=== PATIENT | female | born 1985 | race African-American/Black ===

== ENCOUNTER 2022-02-14 16:25 | Inpatient (IN) | payer OTHER ==
[2022-02-14] MEDS ORDERED: GI Cocktail Oral Solution 30 ML PO ONE (16:45)
[2022-02-14] MEDS ORDERED: Sodium Chloride 0.9% 10 ML Syringe FLUSH PRN (17:27)
[2022-02-14] MEDS ORDERED: Ketorolac 30 MG/ML SDV IVPUSH ONE (17:28)
[2022-02-14] MEDS ORDERED: Ondansetron 4 MG/2 ML SDV IVPUSH ONE (17:28)
[2022-02-14] MEDS ORDERED: Lactated Ringers 1,000 ML IV ONE ×2 (17:28→18:46)
[2022-02-14 18:14] LABS: CHLORIDE,CL 99 mmol/L (98-107); SODIUM,NA 137 mmol/L (136-145)
[2022-02-14 18:16] LABS: ANION GAP 12.3 mmol/L (5-15)
[2022-02-14] MEDS ORDERED: fentaNYL 100 MCG/2 ML SDV IVPUSH ONE (18:46)
[2022-02-14] MEDS ORDERED: cefTRIAXone 1 GM Vial IVPUSH ONE (18:48)
[2022-02-14] MEDS ORDERED: Iopamidol 612 MG/ML 100 ML Bottle IVPUSH ONE (19:02)
[2022-02-14] MEDS ORDERED: Ibuprofen 200 MG Tab PO PRN (20:54)
[2022-02-14] MEDS ORDERED: Promethazine 12.5 MG in Sodium Chloride 0.9% 100 ML IV PRN (20:54)
[2022-02-14 21:37] LABS: BARBITURATE SCREEN,URINE NEGATIVE (NEGATIVE); BENZODIAZEPINES SCREEN,URINE NEGATIVE (NEGATIVE); BUPRENORPHINE SCREEN,URINE NEGATIVE (NEGATIVE); METHAMPHETAMINE SCREEN, URINE NEGATIVE (NEGATIVE); THC SCREEN,URINE 50 NG/ML NEGATIVE (NEGATIVE)
[2022-02-14] MEDS: Sodium Chloride 0.9% 1,000 ML IV SCH (22:31)
[2022-02-14] MEDS: Ondansetron 4 MG/2 ML SDV IV SCH (22:43)
[2022-02-14] MEDS: Morphine 2 MG/ML SYRINGE IVPUSH PRN (22:44)
[2022-02-15] MEDS: Ketorolac 30 MG/ML SDV IVPUSH PRN ×3 (02:37→15:13)
[2022-02-15] MEDS: Ondansetron 4 MG/2 ML SDV IV SCH ×4 (02:42→20:38)
[2022-02-15] MEDS: Morphine 2 MG/ML SYRINGE IVPUSH PRN ×3 (06:03→20:42)
[2022-02-15] MEDS: Sodium Chloride 0.9% 1,000 ML IV SCH ×3 (06:10→19:05)
[2022-02-15 08:37] LABS: CHLORIDE,CL 105 mmol/L (98-107); SODIUM,NA 141 mmol/L (136-145)
[2022-02-15] MEDS ORDERED: Magnesium Sulfate/Water 4 GM in Premix Bag 1 BAG IV ONE (09:18)
[2022-02-15] MEDS: Potassium Chloride Riders 20 MEQ in Premix Bag 1 BAG IV SCH ×2 (12:37→17:58)
[2022-02-15] MEDS ORDERED: Potassium Chloride Riders 20 MEQ in Premix Bag 1 BAG IV SCH (17:45)
[2022-02-16] MEDS: Sodium Chloride 0.9% 1,000 ML IV SCH (01:48)
[2022-02-16] MEDS: Ondansetron 4 MG/2 ML SDV IV SCH ×2 (03:57→08:12)
[2022-02-16 07:19] LABS: ANION GAP 7.6 mmol/L (5-15); CHLORIDE,CL 108 mmol/L (98-107); SODIUM,NA 140 mmol/L (136-145)
[2022-02-16] MEDS: Ketorolac 30 MG/ML SDV IVPUSH PRN (08:14)
[2022-02-16] MEDS ORDERED: Ondansetron 4 MG/2 ML SDV IV PRN (08:20)
[2022-02-16] MEDS ORDERED: Acetaminophen/HYDROcodone 325-5 MG Tab PO PRN (08:21)
[2022-02-16] MEDS ORDERED: Ondansetron 4 MG Tab.DIS PO PRN (08:21)
[2022-02-16] MEDS ORDERED: Ketorolac 15 MG/ML SDV IVPUSH PRN (08:22)
[2022-02-16] MEDS ORDERED: Pantoprazole 40 MG Vial IVPUSH SCH (13:00)
[2022-02-16] MEDS ORDERED: Magnesium Oxide 400 MG Tab PO SCH (13:30)
== END 2022-02-16 17:32 | disposition home or self-care (01) | DRG 439 ==
LOC: VM.ED 16:25 → VM.MS 20:40
PROVIDERS: ADMIT Nurse Practitioner Family; ATTEND Internal Medicine
DX: K85.90 Acute pancreatitis without necrosis or infection, unspecified (principal); N39.0 Urinary tract infection, site not specified; F10.288 Alcohol dependence with other alcohol-induced disorder; K76.0 Fatty (change of) liver, not elsewhere classified; E66.01 Morbid (severe) obesity due to excess calories; N97.9 Female infertility, unspecified; Z20.822 Contact with and (suspected) exposure to COVID-19; R31.9 Hematuria, unspecified; E83.42 Hypomagnesemia; D69.6 Thrombocytopenia, unspecified; Z68.24 Body mass index [BMI] 24.0-24.9, adult; K70.10 Alcoholic hepatitis without ascites
CPT/HCPCS: 36415; 74177; 76705; 80053; 80061; 80305-QW; 80307; 81001; 82140; 82150; 83690; 83735; 85025; 86140; 87086; 96374; 96375; 99220; 99225; 99285-25; A9270-GY; C9113; J0696; J1885; J2270; J2405; J2550; J3010; J3475; J3480; J7030; J7120; Q9967; U0002

== ENCOUNTER 2023-02-02 09:05 | Inpatient (IN) | payer OTHER ==
[2023-02-02] MEDS ORDERED: fentaNYL 50 MCG/ML SDV IVPUSH ONE (09:18)
[2023-02-02] MEDS ORDERED: Sodium Chloride 0.9% 1,000 ML IV ONE (09:38)
[2023-02-02 09:47] LABS: ANION GAP 15.7 mmol/L (5-15); CHLORIDE,CL 102 mmol/L (98-107); ESTIMATED GFR 118 mL/min (>=60); SODIUM,NA 140 mmol/L (136-145)
[2023-02-02] MEDS ORDERED: Iopamidol 612 MG/ML 100 ML Bottle IVPUSH ONE (09:57)
[2023-02-02] MEDS ORDERED: Ondansetron 4 MG/2 ML SDV IV PRN (10:26)
[2023-02-02] MEDS ORDERED: Enoxaparin 30 MG/0.3 ML Syringe SUBCUT SCH (10:30)
[2023-02-02] MEDS ORDERED: HYDROmorphone 0.5 MG/0.5 ML Syringe IVPUSH PRN (10:38)
[2023-02-02] MEDS ORDERED: Dextrose 5%-0.9% NaCl with KCl 1,000 ML IV SCH (10:45)
[2023-02-02] MEDS ORDERED: Pantoprazole 40 MG Vial IVPUSH SCH ×2 (10:45)
[2023-02-02 10:49] LABS: PTT,PARTIAL THROMBOPLSTIN TIME 25.8 SEC (23.6-33.6)
[2023-02-02] MEDS ORDERED: Magnesium Sulfate/Water 2 GM in Premix Bag 1 BAG IV ONE (11:15)
[2023-02-02] MEDS: Pantoprazole 40 MG Vial IVPUSH SCH ×2 (11:45→22:19)
[2023-02-02] MEDS ORDERED: Naloxone 0.4 MG/ML SDV IVPUSH PRN (12:09)
[2023-02-02] MEDS: Dextrose 5%-0.9% NaCl with KCl 1,000 ML IV SCH ×2 (13:06→19:49)
[2023-02-02] MEDS ORDERED: GI Cocktail Oral Solution 30 ML PO ONE (13:15)
[2023-02-02] MEDS: HYDROmorphone 1 MG/ML Syringe IVPUSH PRN ×3 (14:13→22:12)
[2023-02-02] MEDS: Ketorolac 15 MG/ML SDV IVPUSH PRN (16:57)
[2023-02-02] MEDS ORDERED: Thiamine 100 MG Tab PO SCH (21:00)
[2023-02-02] MEDS ORDERED: Enoxaparin 40 MG/0.4 ML Syringe SUBCUT SCH (21:00)
[2023-02-03] MEDS: Ketorolac 15 MG/ML SDV IVPUSH PRN ×2 (00:06→08:45)
[2023-02-03] MEDS: HYDROmorphone 1 MG/ML Syringe IVPUSH PRN ×5 (02:05→19:40)
[2023-02-03] MEDS: Dextrose 5%-0.9% NaCl with KCl 1,000 ML IV SCH ×3 (02:07→15:22)
[2023-02-03 07:29] LABS: CHLORIDE,CL 108 mmol/L (98-107); SODIUM,NA 141 mmol/L (136-145)
[2023-02-03 07:40] LABS: ESTIMATED GFR 114 mL/min (>=60)
[2023-02-03] MEDS ORDERED: Magnesium Sulfate/Water 2 GM in Premix Bag 1 BAG IV ONE (08:13)
[2023-02-03] MEDS ORDERED: Glucagon,Human Recombinant 1 MG Vial IM PRN (08:22)
[2023-02-03] MEDS ORDERED: 50% Dextrose in Water 50 ML Syringe IVPUSH PRN (08:22)
[2023-02-03] MEDS ORDERED: Magnesium Sulfate/Water 50 ML ONE (08:43)
[2023-02-03] MEDS ORDERED: Multivitamin Tab PO SCH (09:00)
[2023-02-03] MEDS ORDERED: FLUoxetine 20 MG Cap PO SCH (09:00)
[2023-02-03] MEDS: Pantoprazole 40 MG Vial IVPUSH SCH (11:25)
[2023-02-03] MEDS: Insulin Lispro 100 Units/ML 3 ML Vial SUBCUT SCH ×2 (12:41→12:42)
== END 2023-02-03 19:45 | disposition short-term general hospital (02) | DRG 440 ==
LOC: VM.ED 09:05 → VM.MS 10:07 → VM.ED 10:34
PROVIDERS: ADMIT Family Medicine; ATTEND Family Medicine
DX: K85.20 Alcohol induced acute pancreatitis without necrosis or infection (principal); F32.A Depression, unspecified; E83.42 Hypomagnesemia; F10.90 Alcohol use, unspecified, uncomplicated; K76.0 Fatty (change of) liver, not elsewhere classified; R73.9 Hyperglycemia, unspecified; Z79.899 Other long term (current) drug therapy
CPT/HCPCS: 36415; 74177; 80053; 82150; 82947; 82977; 83690; 83735; 85025; 85610; 85730; 86140; 99284; A9270-GY; C9113; J1170; J1650; J1885; J2405; J3010; J3475; J3480; J7030; Q9967

== ENCOUNTER 2023-07-24 21:30 | Inpatient (IN) | payer OTHER ==
[2023-07-24] MEDS ORDERED: Sodium Chloride 0.9% 10 ML Syringe FLUSH PRN (21:51)
[2023-07-24] MEDS ORDERED: HYDROmorphone 0.5 MG/0.5 ML Syringe IVPUSH ONE (21:53)
[2023-07-24] MEDS ORDERED: Ondansetron 4 MG/2 ML SDV IVPUSH ONE (21:53)
[2023-07-24] MEDS ORDERED: Sodium Chloride 0.9% 1,000 ML IV SCH ×2 (22:00→23:15)
[2023-07-24 22:21] LABS: BASOPHILS PERCENT AUTO 0.2 % (0.2-1.2); HEMOGLOBIN 13.7 g/dL (12.0-16.0); LYMPHOCYTES ABSOLUTE AUTO 1.6 x10^3/uL (1.0-4.8); LYMPHOCYTES PERCENT AUTO 24.5 % (25.0-50.0); MEAN CORPUSCULAR HEMOGLOBIN 34.3 pg (26.0-32.0); MEAN CORPUSCULAR HGB CONC 35.1 g/dL (32.0-36.0); MEAN CORPUSCULAR VOLUME 97.7 fL (78.0-93.0); MONOCYTES ABSOLUTE AUTO 0.5 x10^3/uL (0.0-0.8); MONOCYTES PERCENT AUTO 7.8 % (2.0-11.0); NEUTROPHILS ABSOLUTE AUTO 4.3 x10^3/uL (1.8-7.7); NEUTROPHILS PERCENT AUTO 67.5 % (50.0-80.0); PLATELET COUNT,PLT 189 x10^3/uL (130-400); RED BLOOD CELL COUNT 3.99 x10^6/uL (4.00-5.50); WHITE BLOOD CELL COUNT,WBC 6.3 x10^3/uL (4.0-10.0)
[2023-07-24 22:22] LABS: APPEARANCE,URINE SLIGHTLY CLOUDY (CLEAR); BILIRUBIN,URINE NEGATIVE (NEGATIVE); COLOR,URINE YELLOW (YELLOW); GLUCOSE,URINE NEGATIVE (NEGATIVE); KETONES,URINE NEGATIVE (NEGATIVE); LEUKOCYTE ESTERASE,URINE NEGATIVE (NEGATIVE); NITRITE,URINE NEGATIVE (NEGATIVE); OCCULT BLOOD,URINE MODERATE (NEGATIVE); PROTEIN,URINE >=300 mg/dL (NEGATIVE); UROBILINOGEN,URINE 0.2 EU/dL (0.2)
[2023-07-24 22:31] LABS: BACTERIA,URINE RARE /HPF (NOT SEEN); MUCUS,URINE RARE /LPF (NOT SEEN); RBC,URINE 30-40 /HPF (NOT SEEN); SQUAMOUS EPITHELIAL CELLS,UR MODERATE /HPF (NOT SEEN); WBC,URINE 0-5 /HPF (NOT SEEN)
[2023-07-24 22:34] LABS: INR 1.2 (0.9-1.1); PROTHROMBIN TIME 13.2 SEC (9.5-12.2); PTT,PARTIAL THROMBOPLSTIN TIME 22.6 SEC (23.6-33.6)
[2023-07-24 22:39] LABS: LACTIC ACID 2.2 mmol/L (0.4-2.0)
[2023-07-24 22:48] LABS: ALANINE AMINOTRANSFERASE,ALT 121 U/L (14-59); ALBUMIN 3.6 g/dL (3.4-5.0); ALKALINE PHOSPHATASE 114 U/L (46-116); AMYLASE 98 U/L (25-115); ANION GAP 13.4 mmol/L (5-15); ASPARTATE AMNIOTRANSFERASE,AST 222 U/L (15-37); BLOOD UREA NITROGEN,BUN 14 mg/dL (7-18); C-REACTIVE PROTEIN < 0.05 mg/dL (<=0.30); CALCIUM 8.5 mg/dL (8.5-10.1); CARBON DIOXIDE,CO2 27 mmol/L (21-32); CHLORIDE,CL 98 mmol/L (98-107); CREATININE 0.8 mg/dL (0.55-1.02); EST CRCL DRUG DOSING (CG) 93.63 mL/min; ESTIMATED GFR 97 mL/min (>=60); ETHANOL BLOOD MEDICAL < 3 mg/dL (0-3); GLUCOSE RANDOM 139 mg/dL (70-99); LIPASE 240 U/L (19-71); MAGNESIUM 1.1 mg/dL (1.8-2.4); POTASSIUM,K 3.4 mmol/L (3.5-5.1); PROTEIN TOTAL,TP 7.2 g/dL (6.4-8.2); SODIUM,NA 135 mmol/L (136-145)
[2023-07-24] MEDS ORDERED: Ondansetron 4 MG/2 ML SDV IV PRN (23:01)
[2023-07-24] MEDS ORDERED: Magnesium Sulfate/Water 4 GM in Premix Bag 1 BAG IV ONE (23:04)
[2023-07-24] MEDS ORDERED: Iopamidol 612 MG/ML 100 ML Bottle IVPUSH ONE (23:09)
[2023-07-24] MEDS ORDERED: LORazepam 2 MG/ML SDV IVPUSH PRN (23:10)
[2023-07-24] MEDS ORDERED: Flumazenil 0.1 MG/ML 5 ML MDV IVPUSH PRN (23:10)
[2023-07-25] MEDS: Pantoprazole 40 MG Vial IVPUSH SCH ×3 (00:07→20:57)
[2023-07-25] MEDS: HYDROmorphone 0.5 MG/0.5 ML Syringe IVPUSH PRN ×6 (00:22→18:24)
[2023-07-25] MEDS: Sodium Chloride 0.9% 1,000 ML IV SCH ×3 (00:45→17:34)
[2023-07-25] MEDS ORDERED: FLU (Fluarix Quad) QS2023-24(6MOS UP)/PF 60 MCG/0.5 ML Syringe IM ONE (02:15)
[2023-07-25 08:10] LABS: EOSINOPHILS PERCENT AUTO 0.1 % (0.0-4.0); HEMATOCRIT 35.7 % (33.0-47.0); HEMOGLOBIN 12.4 g/dL (12.0-16.0); LYMPHOCYTES ABSOLUTE AUTO 1.2 x10^3/uL (1.0-4.8); LYMPHOCYTES PERCENT AUTO 16.4 % (25.0-50.0); MEAN CORPUSCULAR HEMOGLOBIN 34.7 pg (26.0-32.0); MEAN CORPUSCULAR HGB CONC 34.7 g/dL (32.0-36.0); MONOCYTES ABSOLUTE AUTO 0.5 x10^3/uL (0.0-0.8); MONOCYTES PERCENT AUTO 7.2 % (2.0-11.0); NEUTROPHILS ABSOLUTE AUTO 5.5 x10^3/uL (1.8-7.7); NEUTROPHILS PERCENT AUTO 76.3 % (50.0-80.0); PLATELET COUNT,PLT 145 x10^3/uL (130-400); RED BLOOD CELL COUNT 3.57 x10^6/uL (4.00-5.50); WHITE BLOOD CELL COUNT,WBC 7.2 x10^3/uL (4.0-10.0)
[2023-07-25 08:30] LABS: A/G RATIO 0.97; ALBUMIN 3.1 g/dL (3.4-5.0); BILIRUBIN TOTAL 1.4 mg/dL (0.2-1.0); CALCIUM 7.6 mg/dL (8.5-10.1); CREATININE 0.6 mg/dL (0.55-1.02); EST CRCL DRUG DOSING (CG) 124.84 mL/min; MAGNESIUM 2.2 mg/dL (1.8-2.4); POTASSIUM,K 3.1 mmol/L (3.5-5.1); PROTEIN TOTAL,TP 6.3 g/dL (6.4-8.2)
[2023-07-25 08:31] LABS: ANION GAP 10.1 mmol/L (5-15)
[2023-07-25 08:32] LABS: AMPHETAMINES SCREEN, URINE NEGATIVE (NEGATIVE); BARBITURATE SCREEN,URINE NEGATIVE (NEGATIVE); BENZODIAZEPINES SCREEN,URINE NEGATIVE (NEGATIVE); BUPRENORPHINE SCREEN,URINE NEGATIVE (NEGATIVE); COCAINE METABOLITES,URINE NEGATIVE (NEGATIVE); METHADONE SCREEN, URINE NEGATIVE (NEGATIVE); METHAMPHETAMINE SCREEN, URINE NEGATIVE (NEGATIVE); OXYCODONE SCREEN,URINE NEGATIVE (NEGATIVE); PCP SCREEN,URINE NEGATIVE (NEGATIVE); THC SCREEN,URINE 50 NG/ML NEGATIVE (NEGATIVE)
[2023-07-25] MEDS ORDERED: Potassium Chloride 20 MEQ Tab.ER PO ONE (11:00)
[2023-07-25] MEDS: Lactulose Soln 10 GM/15 ML 30 ML UD Cup PO SCH ×3 (12:16→20:57)
[2023-07-25] MEDS: Ketorolac 30 MG/ML SDV IVPUSH PRN (20:55)
[2023-07-26] MEDS: HYDROmorphone 0.5 MG/0.5 ML Syringe IVPUSH PRN ×2 (00:01→11:31)
[2023-07-26] MEDS: Sodium Chloride 0.9% 1,000 ML IV SCH (01:58)
[2023-07-26] MEDS: Ketorolac 30 MG/ML SDV IVPUSH PRN (06:13)
[2023-07-26 07:21] LABS: A/G RATIO 0.81; ALBUMIN 2.6 g/dL (3.4-5.0); CALCIUM 7.7 mg/dL (8.5-10.1); CREATININE 0.5 mg/dL (0.55-1.02); EST CRCL DRUG DOSING (CG) 149.81 mL/min; PROTEIN TOTAL,TP 5.8 g/dL (6.4-8.2)
[2023-07-26] MEDS ORDERED: Potassium Chloride Riders 20 MEQ in Premix Bag 1 BAG IV ONE (08:39)
[2023-07-26] MEDS ORDERED: Lactulose Soln 10 GM/15 ML 30 ML UD Cup PO PRN (08:42)
[2023-07-26] MEDS: Pantoprazole 40 MG Vial IVPUSH SCH ×2 (09:11→20:51)
[2023-07-26] MEDS: Potassium Chloride 10 MEQ Tab.ER PO SCH ×2 (09:13→18:02)
[2023-07-26] MEDS ORDERED: Acetaminophen/HYDROcodone 325-5 MG Tab PO PRN (16:57)
[2023-07-27] MEDS: Acetaminophen 325 MG Tab PO PRN ×2 (02:30→09:44)
[2023-07-27 06:41] LABS: BASOPHILS PERCENT AUTO 0.4 % (0.2-1.2); EOSINOPHILS ABSOLUTE AUTO 0.1 x10^3/uL (0.0-0.5); HEMATOCRIT 33.9 % (33.0-47.0); HEMOGLOBIN 11.9 g/dL (12.0-16.0); IMMATURE GRAN ABSOLUTE AUTO 0.01 x10^3/uL (0.00-0.07); LYMPHOCYTES ABSOLUTE AUTO 1.5 x10^3/uL (1.0-4.8); LYMPHOCYTES PERCENT AUTO 28.4 % (25.0-50.0); MEAN CORPUSCULAR HEMOGLOBIN 34.6 pg (26.0-32.0); MEAN CORPUSCULAR HGB CONC 35.1 g/dL (32.0-36.0); MEAN CORPUSCULAR VOLUME 98.5 fL (78.0-93.0); MONOCYTES ABSOLUTE AUTO 0.4 x10^3/uL (0.0-0.8); MONOCYTES PERCENT AUTO 7.6 % (2.0-11.0); NEUTROPHILS ABSOLUTE AUTO 3.3 x10^3/uL (1.8-7.7); NEUTROPHILS PERCENT AUTO 61.4 % (50.0-80.0); PLATELET COUNT,PLT 135 x10^3/uL (130-400); RED BLOOD CELL COUNT 3.44 x10^6/uL (4.00-5.50); WHITE BLOOD CELL COUNT,WBC 5.4 x10^3/uL (4.0-10.0)
[2023-07-27 07:04] LABS: C-REACTIVE PROTEIN 2.47 mg/dL (<=0.30)
[2023-07-27 07:07] LABS: A/G RATIO 0.76; ALBUMIN 2.9 g/dL (3.4-5.0); BILIRUBIN TOTAL 0.7 mg/dL (0.2-1.0); CALCIUM 8.6 mg/dL (8.5-10.1); CREATININE 0.6 mg/dL (0.55-1.02); EST CRCL DRUG DOSING (CG) 124.84 mL/min; POTASSIUM,K 3.7 mmol/L (3.5-5.1); PROTEIN TOTAL,TP 6.7 g/dL (6.4-8.2)
[2023-07-27 07:08] LABS: ANION GAP 10.7 mmol/L (5-15)
[2023-07-27] MEDS ORDERED: Pantoprazole 40 MG Tab.CR PO SCH (08:30)
[2023-07-27] MEDS: Potassium Chloride 10 MEQ Tab.ER PO SCH (08:35)
[2023-07-27] MEDS ORDERED: Potassium Chloride 10 MEQ Tab.ER PO SCH (09:00)
[2023-07-27] MEDS ORDERED: Magnesium Oxide 400 MG Tab PO SCH (09:00)
[2023-07-27] MEDS ORDERED: Sertraline 25 MG Tab PO SCH (09:00)
== END 2023-07-27 10:00 | disposition home or self-care (01) | DRG 439 ==
LOC: VM.ED 21:30 → VM.MS 22:52
PROVIDERS: ADMIT Nurse Practitioner Family; ATTEND Family Medicine
DX: K85.20 Alcohol induced acute pancreatitis without necrosis or infection (principal); K82.1 Hydrops of gallbladder; K86.1 Other chronic pancreatitis; E87.6 Hypokalemia; E83.42 Hypomagnesemia; F32.A Depression, unspecified; F10.20 Alcohol dependence, uncomplicated; K70.10 Alcoholic hepatitis without ascites; R31.9 Hematuria, unspecified; Z79.899 Other long term (current) drug therapy
CPT/HCPCS: 36415; 74177; 80053; 80061; 80305-QW; 80307; 81001; 81025; 82140; 82150; 82550; 82977; 83605; 83690; 83735; 85025; 85610; 85730; 86140; 96361; 96374; 96375; 99284-25; A9270-GY; C9113; J1170; J1885; J2405; J3475; J3480; J7030; Q9967

== ENCOUNTER 2023-10-28 20:25 | Emergency (ER) | payer OTHER ==
[2023-10-28] MEDS ORDERED: Ondansetron 4 MG Tab.DIS PO ONE (20:52)
[2023-10-28] MEDS ORDERED: Sodium Chloride 0.9% 10 ML Syringe FLUSH PRN (20:53)
[2023-10-28 20:57] LABS: BASOPHILS PERCENT AUTO 0.2 % (0.2-1.2); EOSINOPHILS PERCENT AUTO 0.2 % (0.0-4.0); HEMATOCRIT 33.7 % (33.0-47.0); IMMATURE GRAN ABSOLUTE AUTO 0.01 x10^3/uL (0.00-0.07); LYMPHOCYTES ABSOLUTE AUTO 1.5 x10^3/uL (1.0-4.8); MEAN CORPUSCULAR HEMOGLOBIN 35.2 pg (26.0-32.0); MEAN CORPUSCULAR HGB CONC 35.6 g/dL (32.0-36.0); MEAN CORPUSCULAR VOLUME 98.8 fL (78.0-93.0); MONOCYTES ABSOLUTE AUTO 0.3 x10^3/uL (0.0-0.8); MONOCYTES PERCENT AUTO 5.2 % (2.0-11.0); NEUTROPHILS ABSOLUTE AUTO 3.8 x10^3/uL (1.8-7.7); NEUTROPHILS PERCENT AUTO 67.2 % (50.0-80.0); PLATELET COUNT,PLT 138 x10^3/uL (130-400); RED BLOOD CELL COUNT 3.41 x10^6/uL (4.00-5.50); WHITE BLOOD CELL COUNT,WBC 5.6 x10^3/uL (4.0-10.0)
[2023-10-28] MEDS: Sodium Chloride 0.9% 1,000 ML IV ONE (21:05)
[2023-10-28] MEDS: Ondansetron 4 MG/2 ML SDV IVPUSH ONE (21:05)
[2023-10-28 21:12] LABS: A/G RATIO 0.97; ALANINE AMINOTRANSFERASE,ALT 72 U/L (14-59); ALBUMIN 3.6 g/dL (3.4-5.0); ALKALINE PHOSPHATASE 108 U/L (46-116); ASPARTATE AMNIOTRANSFERASE,AST 106 U/L (15-37); BILIRUBIN TOTAL 0.7 mg/dL (0.2-1.0); BLOOD UREA NITROGEN,BUN 7 mg/dL (7-18); CALCIUM 7.8 mg/dL (8.5-10.1); CARBON DIOXIDE,CO2 25 mmol/L (21-32); CHLORIDE,CL 98 mmol/L (98-107); CREATININE 0.9 mg/dL (0.55-1.02); GLUCOSE RANDOM 135 mg/dL (70-99); PROTEIN TOTAL,TP 7.3 g/dL (6.4-8.2); SODIUM,NA 139 mmol/L (136-145)
[2023-10-28 21:13] LABS: ANION GAP 18.7 mmol/L (5-15); C-REACTIVE PROTEIN < 0.50 mg/dL (<=0.50); ESTIMATED GFR 84 mL/min (>=60); POTASSIUM,K 2.7 mmol/L (3.5-5.1)
[2023-10-28] MEDS: Potassium Chloride 20 MEQ Tab.ER PO ONE ×2 (21:31→21:34)
[2023-10-28] MEDS: Ondansetron 4 MG/2 ML SDV ONE (21:38)
[2023-10-28] MEDS: Take Home: Ondansetron 4 MG Tab.DIS, 5 Tab Pack PO ONE (21:38)
== END 2023-10-28 22:05 | disposition home or self-care (01) ==
LOC: VM.ED 20:25
DX: K52.9 Noninfective gastroenteritis and colitis, unspecified (principal); E87.6 Hypokalemia; E86.0 Dehydration; Z79.899 Other long term (current) drug therapy
CPT/HCPCS: 36415; 80053; 85025; 86140; 96361; 96374; 99284-25; A9270-GY; J2405; J7030; Q0162

== ENCOUNTER 2024-06-28 20:18 | Emergency (ER) | payer OTHER ==
[2024-06-28 20:56] LABS: BASOPHILS PERCENT AUTO 0.2 % (0.2-1.2); HEMATOCRIT 37.8 % (33.0-47.0); HEMOGLOBIN 13.3 g/dL (12.0-16.0); IMMATURE GRAN ABSOLUTE AUTO 0.01 x10^3/uL (0.00-0.07); LYMPHOCYTES ABSOLUTE AUTO 2.1 x10^3/uL (1.0-4.8); MEAN CORPUSCULAR HEMOGLOBIN 35.4 pg (26.0-32.0); MEAN CORPUSCULAR HGB CONC 35.2 g/dL (32.0-36.0); MEAN CORPUSCULAR VOLUME 100.5 fL (78.0-93.0); MONOCYTES ABSOLUTE AUTO 0.4 x10^3/uL (0.0-0.8); MONOCYTES PERCENT AUTO 7.8 % (2.0-11.0); NEUTROPHILS ABSOLUTE AUTO 2.3 x10^3/uL (1.8-7.7); NEUTROPHILS PERCENT AUTO 47.8 % (50.0-80.0); PLATELET COUNT,PLT 272 x10^3/uL (130-400); RED BLOOD CELL COUNT 3.76 x10^6/uL (4.00-5.50); WHITE BLOOD CELL COUNT,WBC 4.8 x10^3/uL (4.0-10.0)
[2024-06-28] MEDS: Lactated Ringers 1,000 ML IV ONE (20:56)
[2024-06-28 21:17] LABS: A/G RATIO 1.08; ALBUMIN 4.1 g/dL (3.4-5.0); BILIRUBIN TOTAL 1.3 mg/dL (0.2-1.0); CALCIUM 8.4 mg/dL (8.5-10.1); CREATININE 0.6 mg/dL (0.55-1.02); EST CRCL DRUG DOSING (CG) 123.63 mL/min; PROTEIN TOTAL,TP 7.9 g/dL (6.4-8.2)
[2024-06-28 21:36] LABS: CORONAVIRUS COVID-19 NAA NEGATIVE (NEGATIVE); INFLUENZA A NAA NEGATIVE (NEGATIVE); INFLUENZA B NAA NEGATIVE (NEGATIVE); RESPIRATORY SYNCYTIAL VIR NAA NEGATIVE (NEGATIVE)
[2024-06-28] MEDS: Potassium Chloride 20 MEQ Tab.ER PO ONE (21:44)
== END 2024-06-28 22:13 | disposition home or self-care (01) ==
LOC: VM.ED 20:18
DX: E87.6 Hypokalemia (principal); R42 Dizziness and giddiness; Z79.899 Other long term (current) drug therapy
CPT/HCPCS: 0241U; 80053; 83690; 85025; 96360; 99284; A9270; J7120

== ENCOUNTER 2024-06-29 11:36 | Emergency (ER) | payer OTHER ==
[2024-06-29 12:17] LABS: APPEARANCE,URINE CLEAR (CLEAR); BILIRUBIN,URINE NEGATIVE (NEGATIVE); COLOR,URINE YELLOW (YELLOW); GLUCOSE,URINE NEGATIVE (NEGATIVE); KETONES,URINE NEGATIVE (NEGATIVE); LEUKOCYTE ESTERASE,URINE NEGATIVE (NEGATIVE); NITRITE,URINE NEGATIVE (NEGATIVE); OCCULT BLOOD,URINE NEGATIVE (NEGATIVE); PROTEIN,URINE NEGATIVE (NEGATIVE)
== END 2024-06-29 13:16 | disposition home or self-care (01) ==
LOC: VM.ED 11:36
DX: R53.1 Weakness (principal); R42 Dizziness and giddiness; Z79.899 Other long term (current) drug therapy
CPT/HCPCS: 81003; 99284

== ENCOUNTER 2025-06-26 09:45 | Inpatient (IN) | payer OTHER ==
[2025-06-26 10:24] LABS: BASOPHILS ABSOLUTE AUTO 0.0 x10^3/uL (0.0-0.2); BASOPHILS PERCENT AUTO 0.1 % (0.2-1.2); EOSINOPHILS ABSOLUTE AUTO 0.0 x10^3/uL (0.0-0.5); EOSINOPHILS PERCENT AUTO 0.1 % (0.0-4.0); IMMATURE GRAN ABSOLUTE AUTO 0.07 x10^3/uL (0.00-0.07); IMMATURE GRAN PERCENT AUTO 0.60 % (0.00-0.43); LYMPHOCYTES ABSOLUTE AUTO 0.7 x10^3/uL (1.0-4.8); LYMPHOCYTES PERCENT AUTO 6.3 % (25.0-50.0); MONOCYTES ABSOLUTE AUTO 1.0 x10^3/uL (0.0-0.8); MONOCYTES PERCENT AUTO 9.1 % (2.0-11.0); NEUTROPHILS ABSOLUTE AUTO 9.2 x10^3/uL (1.8-7.7); NEUTROPHILS PERCENT AUTO 83.8 % (50.0-80.0); PLATELET COUNT,PLT 163 x10^3/uL (130-400); RED BLOOD CELL COUNT 3.12 x10^6/uL (4.00-5.50)
[2025-06-26 10:41] LABS: WHITE BLOOD CELL COUNT,WBC 11.0 x10^3/uL (4.0-10.0)
[2025-06-26 10:53] LABS: A/G RATIO 0.94; BILIRUBIN TOTAL 5.7 mg/dL (0.2-1.0); BLOOD UREA NITROGEN,BUN 15 mg/dL (7-18); CARBON DIOXIDE,CO2 22 mmol/L (21-32); CHLORIDE,CL 89 mmol/L (98-107); CREATININE 1.8 mg/dL (0.55-1.02); GLUCOSE RANDOM 95 mg/dL (70-99); POTASSIUM,K 3.1 mmol/L (3.5-5.1); PROTEIN TOTAL,TP 6.4 g/dL (6.4-8.2)
[2025-06-26 10:57] LABS: ESTIMATED GFR 36 mL/min (>=60); SODIUM,NA 129 mmol/L (136-145)
[2025-06-26] MEDS: Iopamidol 612 MG/ML 100 ML Bottle IVPUSH ONE (11:36)
[2025-06-26 11:49] LABS: ALANINE AMINOTRANSFERASE,ALT 1176 U/L (14-59); ASPARTATE AMNIOTRANSFERASE,AST 6396 U/L (15-37)
[2025-06-26] MEDS: Ondansetron 4 MG/2 ML SDV IVPUSH ONE (12:28)
[2025-06-26] MEDS: Magnesium Sulfate 2 GM/50 mL 2 GM in Premix Bag 1 BAG IV ONE (13:06)
[2025-06-26 14:04] LABS: INR 3.8 (0.9-1.1)
[2025-06-26] MEDS ORDERED: Ondansetron 4 MG Tab.DIS PO PRN (14:40)
[2025-06-26] MEDS ORDERED: Ondansetron 4 MG/2 ML SDV IV PRN (14:56)
[2025-06-26] MEDS: Potassium Chloride 10 MEQ Tab.ER PO SCH (15:51)
[2025-06-26 15:57] LABS: APPEARANCE,URINE SLIGHTLY CLOUDY (CLEAR); GLUCOSE,URINE NEGATIVE (NEGATIVE); OCCULT BLOOD,URINE NEGATIVE (NEGATIVE)
[2025-06-26 16:01] LABS: SQUAMOUS EPITHELIAL CELLS,UR FEW /HPF (NOT SEEN)
[2025-06-28 18:07] LABS: HCV AB BY CIA INTERP Negative (Negative); HEPC AB BY CIA INDEX 0.08 IV
[2025-06-28 19:07] LABS: HAV AB IGM Negative (Negative); HBS AB <3.10 IU/L
[2025-06-28 19:08] LABS: HBC IGM Negative (Negative); HEP B SURFACE AG Negative (Negative); HEPATITIS A TOTAL Positive (Negative)
[2025-06-29 09:07] LABS: PETH 16:0/18:1 (POPETH) 1231 ng/mL
== END 2025-06-26 16:50 | disposition short-term general hospital (02) | DRG 948 ==
LOC: VM.ED 09:45 → VM.MS 13:48
PROVIDERS: ADMIT Internal Medicine; ATTEND Family Medicine
DX: R74.01 Elevation of levels of liver transaminase levels (principal); K86.1 Other chronic pancreatitis; N17.9 Acute kidney failure, unspecified; E87.1 Hypo-osmolality and hyponatremia; F32.A Depression, unspecified; D64.9 Anemia, unspecified; R10.13 Epigastric pain; E86.0 Dehydration; R42 Dizziness and giddiness; R79.89 Other specified abnormal findings of blood chemistry; E87.6 Hypokalemia; E83.42 Hypomagnesemia; K52.9 Noninfective gastroenteritis and colitis, unspecified; Z79.899 Other long term (current) drug therapy
CPT/HCPCS: 36415; 74177; 80053; 81001; 81025; 83690; 83735; 85025; 85610; 86705; 86706; 86708; 86709; 86803; 87340; 87428-QW; 93005; 96365; 96375; 99285-25; A9270-GY; G0480; J2405; J3475; Q9967